=== PATIENT | female | born 1955 | race Caucasian/White ===

== ENCOUNTER 2018-04-06 06:05 | Emergency (ER) | payer BC ==
[~2018-04-06] VITALS: Ht 144.8 cm; Wt 56.8 kg
[~2018-04-06 06:05] MED LIST: IMODIUM2 MG PO; ZOFRAN4 M1 PO
[2018-04-06 07:10] LABS: EOS # 0.1 (0.04-0.40); EOS % 1.5 % (1.0-5.0); HEMATOCRIT 37.4 % (37.0-47.0); LYMPH# 2.1 (1.50-4.00); MEAN CELL VOLUME 79 fl (78-100); MEAN CORPUSCULAR HEMOGLOBIN 28 pg (27-31); MEAN CORPUSCULAR HGB CONC 35 g/dL (33-37); MEAN PLATELET VOLUME 10.2 fl (7.4-10.4); MONO # 0.5 (0.20-0.80); NEU # 3.3 (1.40-6.50); PLATELET COUNT 244 K/mm3 (130-400); RED BLOOD COUNT 4.72 M/mm3 (4.10-5.30); RED CELL DISTRIBUTION WIDTH 14.3 % (11.5-14.5)
[2018-04-06 07:27] LABS: ALBUMIN 4.3 g/dL (3.5-5.0); CALCIUM 9.3 mg/dL (8.4-10.2); POTASSIUM 3.3 mmol/L (3.6-5.0); TOTAL BILIRUBIN 0.6 mg/dL (0.2-1.3); TOTAL PROTEIN 7.9 g/dL (6.3-8.2)
[2018-04-06 07:39] LABS: PARTIAL THROMBOPLASTIN TIME 25.3 SECONDS (21.0-32.0); PROTHROMBIN TIME 9.6 SECONDS (9.0-12.0)
[2018-04-06] MEDS ORDERED: MECLIZINE PO (09:12)
[2018-04-06 09:16] VITALS: BP 159/72
== END 2018-04-06 09:20 | disposition home or self-care (01) ==
LOC: ED 06:05
PROVIDERS: Nurse Practitioner Family
DX: R42 Dizziness and giddiness (principal); R51 Headache; R53.1 Weakness; R11.0 Nausea; R27.0 Ataxia, unspecified
CPT/HCPCS: J7030

== ENCOUNTER → 2020-09-21 | Day surgery (SDC) | payer MEDICARE ==
[~2020-09-21] MED LIST changes: +CORICIDIN COUGH1 TAB; +MECLIZINE PO; +NIGHT-TIME COL300 ML PO
== END ==
LOC: MSO 07:03
DX: Z12.11 Encounter for screening for malignant neoplasm of colon (principal)
CPT/HCPCS: G0121; 00812; J2704; J7120

== ENCOUNTER 2021-05-21 07:27 | Emergency (ER) | payer MEDICARE ==
[~2021-05-21] VITALS: Ht 144.8 cm; Wt 58.1 kg
[~2021-05-21 07:27] MED LIST changes: -CORICIDIN COUGH1 TAB; -NIGHT-TIME COL300 ML PO
[2021-05-21] MEDS ORDERED: CORICIDIN COUGH1 TAB (07:48)
[2021-05-21] MEDS ORDERED: NIGHT-TIME COL300 ML PO (07:48)
[2021-05-21 08:46] LABS: BASO # 0.03 K/mm3 (0.02-0.10); EOS # 0.04 K/mm3 (0.04-0.40); EOS % 0.6 % (1.0-5.0); HEMATOCRIT 40.3 % (37.0-47.0); HEMOGLOBIN 13.3 g/dL (12.5-16.0); LYMPH# 2.38 K/mm3 (1.50-4.00); MEAN CELL VOLUME 82 fl (78-100); MEAN CORPUSCULAR HEMOGLOBIN 27 pg (27-31); MEAN CORPUSCULAR HGB CONC 33 g/dL (33-37); MEAN PLATELET VOLUME 9.9 fl (7.4-10.4); MONO # 0.32 K/mm3 (0.20-0.80); NEU # 3.92 K/mm3 (1.40-6.50); PLATELET COUNT 267 K/mm3 (130-400); RED CELL DISTRIBUTION WIDTH 15.1 % (11.5-14.5); WHITE BLOOD COUNT 6.7 K/mm3 (4.8-10.8)
[2021-05-21 08:55] LABS: URINE APPEARANCE CLEAR; URINE BILIRUBIN NEGATIVE (NEGATIVE); URINE BLOOD TRACE (NEGATIVE); URINE COLOR YELLOW; URINE GLUCOSE NEGATIVE (NEGATIVE); URINE KETONE NEGATIVE (NEGATIVE); URINE LEUKOCYTE ESTERASE NEGATIVE (NEGATIVE); URINE NITRATE NEGATIVE (NEGATIVE); URINE PROTEIN(semi-quant) TRACE mg/dL (NEGATIVE); URINE UROBILINOGEN NORMAL (NORMAL)
[2021-05-21 08:56] LABS: ALBUMIN 4.5 g/dL (3.4-4.8); POTASSIUM 3.7 mmol/L (3.5-5.1)
[2021-05-21 08:56] LABS: URINE MUCUS PRESENT (NOT PRESENT)
[2021-05-21 08:57] LABS: CALCIUM 9.4 mg/dL (8.3-10.5)
[2021-05-21 08:59] LABS: TOTAL PROTEIN 8.5 g/dL (6.2-8.1)
[2021-05-21 09:00] LABS: TOTAL BILIRUBIN 0.4 mg/dL (0.2-1.2)
[2021-05-21 09:50] VITALS: BP 185/93
== END 2021-05-21 10:08 | disposition home or self-care (01) ==
LOC: ED 07:27
PROVIDERS: Nurse Practitioner Family
DX: J06.9 Acute upper respiratory infection, unspecified (principal); R42 Dizziness and giddiness; R19.7 Diarrhea, unspecified; Z20.822 Contact with and (suspected) exposure to COVID-19

== ENCOUNTER → 2021-08-30 | Outpatient (CLI) | payer MEDICARE ==
[~2021-08-30] MED LIST changes: +CORICIDIN COUGH1 TAB; +NIGHT-TIME COL300 ML PO
== END ==
LOC: MAMMO 13:20
DX: Z12.31 Encounter for screening mammogram for malignant neoplasm of breast (principal); Z13.820 Encounter for screening for osteoporosis; Z78.0 Asymptomatic menopausal state

== ENCOUNTER → 2024-09-11 | Outpatient (CLI) | payer MEDICARE | LOC: MAMMO 13:47 | DX: Z12.31 Encounter for screening mammogram for malignant neoplasm of breast (principal) ==